=== PATIENT | female | born 1970 | race Caucasian/White ===

== ENCOUNTER 2016-10-14 14:32 | Emergency (ER) | payer BC, MEDICAID ==
[~2016-10-14] VITALS: Ht 167.6 cm; Wt 83.9 kg
[~2016-10-14 14:32] MED LIST: ACET-2154 PO
[2016-10-14] MEDS ORDERED: OXYCODONE/APAP 5-325 MG TABLET PO ONE (14:45)
[2016-10-14] MEDS ORDERED: ALBUTEROL SULFATE 2.5 MG/3 ML NEBU NEB ONE (14:45)
--- NOTE | 2016-10-14 14:55 | NUR ---
PT IS IN ROOM #1B. DR URIBE EVALUATED THE PT.
[2016-10-14] MEDS ORDERED: ALBUTEROL SULFATE 2.5 MG/3 ML NEBU ONE (15:09)
[2016-10-14 15:16] LABS: CALCIUM 8.6 mg/dL (8.5-10.1); POTASSIUM 4.8 mmol/L (3.5-5.1)
[2016-10-14 15:17] LABS: BASOPHILS % (AUTO) 0.3 % (0.0-2.0); EOSINOPHILS # (AUTO) 0.1 K/uL (0.0-0.7); EOSINOPHILS % (AUTO) 1.2 % (0.0-7.0); HEMATOCRIT 35.1 % (31.2-41.9); HEMOGLOBIN 11.9 g/dL (10.9-14.3); LYMPHOCYTES # (AUTO) 0.8 K/uL (20.0-40.0); LYMPHOCYTES % (AUTO) 16.6 % (20.5-51.5); MEAN CORPUSCULAR HEMOGLOBIN 31.5 uug (24.7-32.8); MEAN CORPUSCULAR HGB CONC 34 g/dL (32.3-35.6); MEAN CORPUSCULAR VOLUME 92.7 fL (75.5-95.3); MONOCYTES # (AUTO) 0.1 K/uL (2.0-10.0); MONOCYTES % (AUTO) 1.4 % (0.0-11.0); NEUTROPHILS # (AUTO) 3.5 K/uL (1.8-8.9); NEUTROPHILS % (AUTO) 80.5 % (38.5-71.5); PLATELET COUNT (AUTO) 218 K/uL (179-408); RED BLOOD CELL COUNT(AUTO) 3.78 MIL/uL (3.63-4.92); RED CELL DISTRIBUTION WIDTH 12.2 % (12.3-17.7); WHITE BLOOD COUNT (AUTO) 4.5 K/uL (3.8-11.8)
[2016-10-14 15:22] LABS: ALBUMIN 3.6 g/dL (3.4-5.0); BILIRUBIN,TOTAL 0.2 mg/dL (0.2-1.0); TOTAL PROTEIN, SERUM 6.9 g/dL (6.4-8.2)
[2016-10-14] MEDS ORDERED: OXYCODONE/APAP 5-325 MG TABLET ONE (15:22)
[2016-10-14 15:31] LABS: ABG BASE EXCESS 0.2 mmol/L; ABG HCO3 26.7 mmol/L; ABG PCO2 50.9 mmHg (35.0-45.0); ABG PH 7.337 (7.350-7.450); ABG PO2 211.1 mmHg (75.0-100.0); ABG SITE LEFT RADIAL; ABG TOTAL HEMOGLOBIN 12.4 G/dL (12.0-16.0); COHb 2.6 % (0.5-1.5); MetHb 0.3 % (0.0-1.5); O2Hb 96.4 % (94.0-97.0)
[2016-10-14 15:34] LABS: LACTIC ACID 2.5 mmol/L (0.4-2.0)
[2016-10-14] MEDS ORDERED: IV NORMAL SALINE 1000 ML BAG IV ONE (16:00)
--- NOTE | 2016-10-14 17:54 | NUR ---
PT LEFT HOSPITAL ER AMA. DR URIBE EXPLAINED ALL RISKS OF LEAVING HOSPITAL AMA TO THE PT. PT VERBALISED FULL UNDERSTANDING. PT SIGNED AMA FORM AND LEFT HOSPITAL WITH HER . GAIT IS STABLE. NO S/S OF ACUTE DISTREE AT THE TIME OF DISCHARGE.
[2016-10-14 17:58] VITALS: BP 141/77
--- NOTE | 2016-10-16 12:39 | NUR ---
dr gonzales reviewed pt's carbon monoxide result, pt results are w/ in acceptible limits.
== END 2016-10-14 17:59 | disposition left against medical advice (07) ==
LOC: ER 14:32
DX: J70.5 Respiratory conditions due to smoke inhalation (principal); J45.901 Unspecified asthma with (acute) exacerbation; F17.200 Nicotine dependence, unspecified, uncomplicated
CPT/HCPCS: 36415; 36600; 71010; 82375; 83605; 85025; A4663; J7030